=== PATIENT | male | born 1950 | race American Indian/Alaskan Native ===

== ENCOUNTER 2018-02-10 00:07 | Emergency (ER) | payer SELFPAY ==
--- NOTE | 2018-02-10 03:08 | Emergency Department Report ---
ED General Adult HPI - General Chief complaint: High BP Stated complaint: HIGH BLOOD PRESSURE Time Seen by Provider: 02/10/18 02:42 Source: patient Mode of arrival: Ambulatory Limitations: No Limitations - History of Present Illness Initial comments: Mr. Sharma is a healthy 67-year-old male with history of hypertension. He takes hydrochlorothiazide. He recently developed facial swelling due to lisinopril. He has recently moved from [place]. He has been here in [place] for 3 weeks. Does not have any access to care. Does not have health insurance. He does not have symptoms. He denies headache. Denies blurry vision. Denies chest pain. Denies paresthesias. He just desires medication refill. He takes hydrochlorothiazide. However he desires a second antihypertensive medication to replace lisinopril. - Related Data Previous Rx's Medication Instructions Recorded Last Taken Type Hydrochlorothiazide [HCTZ] 25 mg PO QDAY 90 Days #90 tablet 02/10/18 Unknown Rx amLODIPine [Norvasc] 5 mg PO DAILY 90 Days #90 tab 02/10/18 Unknown Rx Allergies Allergy/AdvReac Type Severity Reaction Status Date / Time lisinopril Allergy Angioedema Verified 02/10/18 00:22 ED Review of Systems ROS: Stated complaint: HIGH BLOOD PRESSURE Other details as noted in HPI Comment: All other systems reviewed and negative Constitutional: denies: fever, malaise Respiratory: denies: cough Cardiovascular: denies: chest pain ED Past Medical Hx - Past Medical History Previous Medical History?: Yes Hx Hypertension: Yes - Surgical History Past Surgical History?: No - Social History Smoking Status: Former Smoker Substance Use Type: Marijuana - Medications Home Medications: Home Medications Medication Instructions Recorded Confirmed Last Taken Type Hydrochlorothiazide [HCTZ] 25 mg PO QDAY 90 Days #90 tablet 02/10/18 Unknown Rx amLODIPine [Norvasc] 5 mg PO DAILY 90 Days #90 tab 02/10/18 Unknown Rx ED Physical Exam - General Limitations: No Limitations General appearance: alert, in no apparent distress - Head Head exam: Present: atraumatic, normocephalic - Eye Eye exam: Present: normal appearance - ENT ENT exam: Present: mucous membranes moist - Neck Neck exam: Present: normal inspection - Respiratory Respiratory exam: Present: normal lung sounds bilaterally. Absent: respiratory distress, wheezes, rales, rhonchi - Cardiovascular Cardiovascular Exam: Present: regular rate, normal rhythm, normal heart sounds. Absent: systolic murmur, diastolic murmur, rubs, gallop - GI/Abdominal GI/Abdominal exam: Present: soft, normal bowel sounds. Absent: distended, tenderness, guarding, rebound - Rectal Rectal exam: Present: deferred - Extremities Exam Extremities exam: Present: normal inspection - Back Exam Back exam: Present: normal inspection - Neurological Exam Neurological exam: Present: alert, oriented X3 - Psychiatric Psychiatric exam: Present: normal affect, normal mood - Skin Skin exam: Present: warm, dry, intact, normal color. Absent: rash ED Course Vital Signs 02/10/18 02/10/18 00:08 00:22 Temperature 97.8 F 97.8 F Pulse Rate 49 L 50 L Respiratory 18 18 Rate Blood Pressure 185/85 185/85 O2 Sat by Pulse 98 99 Oximetry ED Medical Decision Making - Medical Decision Making Mr. Sharma is a 67-year-old male with asymptomatic hypertension. I have prescribed 90 day supply of amlodipine and hydrochlorothiazide. I referred him to outside clinic for blood pressure follow-up. Critical care attestation.: If time is entered above; I have spent that time in minutes in the direct care of this critically ill patient, excluding procedure time. ED Disposition Clinical Impression: Hypertensive urgency Disposition: DC-01 TO HOME OR SELFCARE Is pt being admited?: No Does the pt Need Aspirin: No Condition: Stable Instructions: Chronic Hypertension (ED) Prescriptions: amLODIPine [Norvasc] 5 mg PO DAILY 90 Days #90 tab Hydrochlorothiazide [HCTZ] 25 mg PO QDAY 90 Days #90 tablet Referrals: [facility] [Outside] - 3-5 Days Time of Disposition: 03:08
[2018-02-10 03:13] VITALS: BP 165/78
== END 2018-02-10 03:13 | disposition home or self-care (01) ==
LOC: ED 00:07
DX: I16.0 Hypertensive urgency (principal); I10 Essential (primary) hypertension; F12.10 Cannabis abuse, uncomplicated; Z87.891 Personal history of nicotine dependence; Z88.8 Allergy status to other drugs, medicaments and biological substances
CPT/HCPCS: 99282